=== PATIENT | male | born 1940 | race Caucasian/White ===

== ENCOUNTER 2018-07-22 06:40 | Inpatient (IN) ==
[2018-07-22] MEDS ORDERED: Chlorhexidine Gluconate 2% 1 Pack (2 Cloths) TOPICAL ONE (07:30)
[2018-07-22] MEDS ORDERED: Chlorhexidine 4% Topical 120 APPLIC/120 ML Bottle TOPICAL SCH (07:30)
[2018-07-22] MEDS ORDERED: Metoprolol Tartrate 25 MG Tablet PO ONE (07:30)
[2018-07-22] MEDS ORDERED: Sodium Chlor 0.9% Inj 500 ML IV.CONT ONE (07:30)
[2018-07-22] MEDS ORDERED: Dexamethasone Inj 20 MG/5 ML Vial IV.PUSH SCH (08:00)
[2018-07-22] MEDS ORDERED: ceFAZolin 2 GM Premix Inj 2 GM/50 ML PIGGYBACK IV.SIG SCH (08:00)
[2018-07-22] MEDS ORDERED: Vancomycin Inj 1,000 MG in Sodium Chlor 0.9% Inj 250 ML IV.SIG SCH (08:00)
[2018-07-22] MEDS ORDERED: SODIUM CHLOR 0.9% IV.SIG SCH (08:30)
[2018-07-22] MEDS ORDERED: Sodium Chlor 0.9% Inj 40 ML, Bupivacaine Liposo PF 1.3% Inj 20 ML P-ARTICULR SCH ×2 (08:30)
[2018-07-22] MEDS ORDERED: TRANEXAMIC ACID IV.SIG SCH (08:30)
[2018-07-22] MEDS ORDERED: fentaNYL Citrate Inj 100 MCG/2 ML Ampul ONE (08:55)
[2018-07-22] MEDS ORDERED: fentaNYL Citrate Inj 250 MCG/5 ML Ampul ONE (08:56)
[2018-07-22] MEDS ORDERED: Famotidine PF Inj 20 MG/2 ML Vial ONE (08:56)
[2018-07-22] MEDS ORDERED: TRANEXAMIC ACID IV.SIG ONE (11:42)
[2018-07-22] MEDS ORDERED: Zolpidem Tartrate 5 MG Tablet PO PRN (11:42)
[2018-07-22] MEDS ORDERED: SODIUM CHLOR 0.9% IV.SIG ONE (11:42)
[2018-07-22] MEDS ORDERED: Post-op Orders (for Pharmacy) OTHER STA (11:42)
[2018-07-22] MEDS ORDERED: Morphine Inj 4 MG/ML Vial IV.PUSH PRN (11:42)
[2018-07-22] MEDS ORDERED: Bisacodyl 10 MG Supp RECTAL PRN (11:42)
[2018-07-22] MEDS ORDERED: Aluminum/Magnesium/Simethacone Susp 30 ML UDC PO PRN (11:42)
--- NOTE | 2018-07-22 11:44 | P.OP ---
- Preoperative Diagnosis (1) Osteoarthritis of right hip - Postoperative Diagnosis (1) Osteoarthritis of right hip Date of procedure: 07/22/18 Procedure: Right total hip arthroplasty Anesthesia: GETA Surgeon: Brain Peng MD Waste [employer] Batting Waste Chopper: GUSTAVO De La Torre The surgical procedure was assisted by my Advanced Registered Nurse Practitioner. My REPAIRER AND CHECKER presence was necessary throughout this case for the manipulation and positioning of the surgical extremity. My REPAIRER AND CHECKER was assisting me throughout the duration of this procedure. The skill set of an Advance Registered Nurse Practitioner was medically necessary to complete this procedure. During the surgical case, the surgical assist was working at the back table and the Advance Registered Nurse Practitioner was directly assisting me. Operation and Findings: IMPLANT DESCRIPTION ([facility]): 1. [place] Gription Cup, acetabular size 58. 2. [place] AltrX polyethylene, neutral. 4. Corail femoral stem size 11, no collar, high offset. 5. Femoral head/neck metal, 36, +1.5. ESTIMATED BLOOD LOSS: 150 cc. JUSTIFICATION FOR PROCEDURE: The patient has end-stage osteoarthritis to the hip. There is an attached conservative measures pathway form in the chart that describes the nonoperative measures that were undertaken prior to consideration of surgical management. The patient understood the risks and benefits of surgical management. See my office notes for further details. PROCEDURE: The patient was brought back to the operative theatre. Adequate anesthesia was obtained. The patient received intravenous vancomycin and Ancef. The patient was carefully placed on the operative table. The lower extremity was prepped and draped in the usual sterile fashion. Fluoroscopic images were obtained. We made a standard anterior incision over the hip. We dissected through the TFL fascia, exposing the anterior capsule. Arthrotomy was performed in a T-shaped fashion. The capsule was tagged with a #2 FiberWire. End-stage arthritis was identified. Osteotomy was performed through the femoral neck exposing the acetabulum. Remnants of the labrum were resected and osteophytes were removed. We sequentially reamed the acetabulum. We trialed the hip and placed the final cup into position. This was done under fluoroscopic guidance to obtain the appropriate inclination and anteversion. A manhole cover was placed into the acetabular component. We then placed the final polyethylene into position and confirmed that it was well seated. Capsular attachments on the calcar and the inner aspect of the greater trochanter were resected. On the proximal aspect of the femur we used a rongeur , box osteotome, canal finder, sequential broaches and lateralizing rasp. We calcar planed the proximal femur. Then thoroughly irrigated the wound. We trialed the hip with the appropriate size stem. We placed the final stem in to position and trialed again. The hip was stable while it was externally rotated 70 degrees when the leg was lowered to the floor. The final head was applied, and final fluoroscopic images were obtained. The wound was thoroughly irrigated again. Interarticular injection of liposomal bupivacaine was given. The capsule was closed with #2 FiberWire and #1 Vicryl. The deep fascia was closed with a #2 Stratafix, followed by 2-0 Vicryl in the skin and Dermabond dressing. Postop plan is to weight-bear as tolerated. DVT prophylaxis will be performed with SCDs, ROSEANNA hose, early mobilization, and resumption of Xarelto (10 mg while in the hospital and continuing outpatient dose of 20 after discharge).
[2018-07-22] MEDS: Sod Chloride 0.9% Inj 1,000 ML IV.CONT SCH (12:32)
--- NOTE | 2018-07-22 12:51 | XR ---
EXAM DATE: 07/22/2018 12:45 PM EST AGE/SEX: 78 years / Male INDICATIONS: Post op right hip. CLINICAL DATA: This is the patient's initial encounter. Patient reports that signs and symptoms have been present for 1 day and indicates a pain score of Nonresponsive. MEDICAL/SURGICAL HISTORY: None. . Left hip replacement. COMPARISON: [facility] – [place], HIP LEFT (AP&LAT 2/3VWS) WO AP PELVIS, 03/04/2012. . FINDINGS: Right total hip arthroplasty has been performed. The prosthesis is in good position. No fracture or d islocation is noted. Old left total hip arthroplasty is noted. Degenerative changes are noted involvi ng the lower lumbar spine. CONCLUSION: 1. Post right total hip arthroplasty with prosthesis in good position. 2. No acute fracture or dislocation. 3. Degenerative changes within the lower lumbar spine. Electronically signed by: Abdulaziz Meraz MD Board Certified Radiologist 07/22/2018 12:50 PM EST
--- NOTE | 2018-07-22 14:03 | XR ---
EXAM DATE: 07/22/2018 2:00 PM EST AGE/SEX: 78 years / Male INDICATIONS: Right total hip arthroplasty. CLINICAL DATA: This is the patient's initial encounter. Patient reports that signs and symptoms have been present for 1 day and indicates a pain score of Nonresponsive. MEDICAL/SURGICAL HISTORY: Non-responsive. Non-responsive. COMPARISON: No prior exams available for comparison. FINDINGS: The patient is status post right total hip arthroplasty. The prosthesis is in good position. No fract ure or dislocation is noted. CONCLUSION: Status post right total hip arthroplasty with prosthesis in good position. Electronically signed by: Abdulaziz Meraz MD Board Certified Radiologist 07/22/2018 2:02 PM EST
[2018-07-22] MEDS: ceFAZolin 1 GM Premix Inj 1 GM/50 ML PIGGYBACK IV.SIG SCH ×2 (14:11→21:12)
--- NOTE | 2018-07-22 16:37 | P.DCO ---
- Physical Therapy Physical Therapy: Gait training, Transfer training, bed to chair Hip: Total hip Right Lower Extremity Weight Bearing: Weight bearing as tolerated Right Lower Extremity Range of Motion: Active ROM - Nursing Dressing changes: Do not change dressing Additional instructions: First dressing change in the office - Certification Need for Home Health services: I have seen patient Leobardo Mccauley on 07/22/18. My clinical findings support the need for the requested home health care services because: Need for Home Health Services: Limited ability to care for self, High risk of falls Homebound Certification: I certify that my clinical findings support that this patient is homebound because: Homebound Certification: Post-op weakness, Unsteady gait/balance
[2018-07-22] MEDS ORDERED: Ramipril 5 MG Capsule PO SCH (21:00)
[2018-07-22] MEDS: Multivitamin/Minerals Therapeutic Tablet PO SCH (21:15)
[2018-07-22] MEDS: Senna/Docusate Sodium 8.6/50 MG Tablet PO SCH (21:15)
[2018-07-23] MEDS: Sod Chloride 0.9% Inj 1,000 ML IV.CONT SCH (01:00)
[2018-07-23] MEDS: ceFAZolin 1 GM Premix Inj 1 GM/50 ML PIGGYBACK IV.SIG SCH (02:27)
[2018-07-23 04:21] LABS: Hematocrit 39.2 % (39.0-51.0); Hemoglobin 13.3 gm/dL (13.0-17.0)
--- NOTE | 2018-07-23 07:25 | P.PNOP ---
Subjective Interval history: The patient is resting comfortably in bed in no acute distress. The patient denies any pain to the right hip. The patient does want to go home today with home health. Physical Exam Vital signs: Vital Signs 07/22/18 12:08 07/22/18 12:15 07/22/18 12:30 Temperature 97.9 F Pulse Rate 102 H 110 H 111 H Respiratory Rate 14 14 14 Blood Pressure 137/91 H 120/63 122/71 Pulse Oximetry 96 94 L 94 L 07/22/18 12:45 07/22/18 13:00 07/22/18 13:15 Temperature 97.9 F Pulse Rate 102 H 99 H 94 H Respiratory Rate 14 14 14 Blood Pressure 140/66 131/66 147/65 H Pulse Oximetry 96 93 L 95 07/22/18 13:25 07/22/18 16:00 07/22/18 19:56 Temperature 97.3 F L 97.5 F L Pulse Rate 90 103 H Respiratory Rate 16 18 Blood Pressure 169/77 H 133/85 Pulse Oximetry 95 94 L 97 07/22/18 23:16 07/23/18 02:16 07/23/18 03:55 Temperature 97.4 F L 98.0 F Pulse Rate 73 82 Respiratory Rate 18 17 18 Blood Pressure 118/69 139/90 Pulse Oximetry 95 96 Intake & Output 07/22/18 07/23/18 07/23/18 18:59 06:59 18:59 Intake Total 2058.14 / 2058.14 1460 / 1460 Output Total 250 / 250 1150 / 1150 Balance 1808.14 / 1808.14 310 / 310 Weight 81.4 kg 81.4 kg Intake: IV 458.14 / 458.14 1100 / 1100 NS Inj 1,000 ML @ 80 mls/hr IV. 1000 / 1000 CONT .[id number] KOJO Rx#:[id number] Cyklokapron Inj 814 MG In NS 108.14 / 108.14 Inj 100 ML @ 200 mls/hr IV.SIG GROCERY DELIVERER KOJO Rx#:[id number] Vancomycin Inj 1,000 MG In NS 250 / 250 Inj 250 ML @ 250 mls/hr IV.SIG GROCERY DELIVERER KOJO Rx#:[id number] Ancef 1 GM Premix Inj 1 gm In 50 / 50 100 / 100 50 ml @ 100 mls/hr IV.SIG Q6H KOJO Rx#:[id number] Ancef 2 GM Premix Inj 2 gm In 50 / 50 50 ml @ 100 mls/hr IV.SIG GROCERY DELIVERER KOJO Rx#:[id number] Oral 360 / 360 Anesthesia Amount 1600 / 1600 Output: Urine 1150 / 1150 Estimated Blood Loss 250 / 250 Other: Date of Last Bowel Movement 07/21/18 07/21/18 # Bowel Movements 0 Weight On Admission 81.4 kg Narrative: The patient's dressing is clean, dry, and intact. EHL/TA/G are intact. 2+ pedal pulse. The patient's calf is soft and nontender. Sensation is intact to light touch distally. Results - Labs CBC & Chem 7: 07/23/18 03:46 Laboratory Results - last 24 hr 07/22/18 07/23/18 07:40 03:46 Hgb 13.3 Hct 39.2 Blood Type B Positive Blood Type Recheck Not needed Antibody Screen Negative - Imaging Impressions Hip X-Ray 07/22/18 00:00 CONCLUSION: Status post right total hip arthroplasty with prosthesis in good position. Hip X-Ray 07/22/18 11:42 CONCLUSION: 1. Post right total hip arthroplasty with prosthesis in good position. 2. No acute fracture or dislocation. 3. Degenerative changes within the lower lumbar spine. - Procedures Right total hip arthroplasty Assessment and Plan - Problem List (1) Status post total hip replacement, right Code(s): Z96.641 - Presence of right artificial hip joint Status: Acute (2) Osteoarthritis of right hip Code(s): M16.11 - Unilateral primary osteoarthritis, right hip Status: Acute - Assessment and Plan POD #1: [Right] total hip arthroplasty 1. Weightbearing as tolerated on [right] lower extremity. 2. Xarelto 10 mg tablet by mouth daily while in the hospital and then resume normal dose of Xarelto 20 mg daily when discharged home for DVT prophylaxis. 3. Ice as needed for swelling. 4. Stable per ortho for discharge to home health today. 5. The patient will follow up with Dr. Peng and/or GUSTAVO Hightower as previously scheduled.
[2018-07-23] MEDS ORDERED: Dexamethasone Inj 20 MG/5 ML Vial IV.PUSH ONE (08:00)
[2018-07-23 08:53] VITALS: BP 125/60; PULSE 85; RESP 16; TEMP 97.6; O2SAT 97
[2018-07-23] MEDS ORDERED: dilTIAZem CD 120 MG Capsule PO SCH (09:00)
[2018-07-23] MEDS: Multivitamin/Minerals Therapeutic Tablet PO SCH (09:13)
[2018-07-23] MEDS: Senna/Docusate Sodium 8.6/50 MG Tablet PO SCH (09:13)
[2018-07-23] MEDS ORDERED: Rivaroxaban 10 MG Tablet PO SCH (11:00)
--- NOTE | 2018-07-24 15:13 | P.DS ---
Date of admission: 07/22/18 12:27 Primary care physician: PROVIDER NON STAFF Attending physician on discharge: Brain Peng Anticipated date of discharge: 07/23/18 Brief History from admission: The patient was admitted to the hospital for severe osteoarthritis of the right hip to have a right total hip arthroplasty. DS: Diagnosis - Discharge Diagnosis (1) Status post total hip replacement, right Status: Acute (2) Osteoarthritis of right hip Status: Acute DS: Summary Hospital Course: The patient was admitted to the hospital for severe osteoarthritis of the [right ] hip to have a [right] total hip arthroplasty. The patient's surgery went well with no complication. The patient is on a [regular] diet. The patient's DVT prophylaxis includes use of Xarelto 10 mg daily while in the hospital and then resume his normal dose of Xarelto 20 mg by mouth daily after being discharged home. The patient is weightbearing as tolerated. The patient was discharged [home with home health] and will follow up in the office with Dr. Peng and/or GUSTAVO Hightower as previously scheduled. - Time Spent with Patient Total time spent providing and/or coordinating discharge services: Greater than 30 minutes - Quality: VTE Deep Vein Thrombosis/Pulmonary Embolism Present on Admission: No Exam Vital signs: Intake & Output 07/23/18 07/24/18 07/24/18 18:59 06:59 18:59 Other: Date of Last Bowel Movement 07/21/18 Narrative: The patient's dressing is clean, dry, and intact. EHL/TA/G are intact. 2+ pedal pulse. The patient's calf is soft and nontender. Sensation is intact to light touch distally. Results Procedures completed during hospitalization: Right total hip arthroplasty - Impressions ITS Impressions Hip X-Ray 07/22/18 11:42 CONCLUSION: 1. Post right total hip arthroplasty with prosthesis in good position. 2. No acute fracture or dislocation. 3. Degenerative changes within the lower lumbar spine. Discharge Plan - Discharge Disposition Patient Disposition: W/Home Health Service - Discharge Condition Condition: Stable - Discharge Order Discharge Orders: Discharge Order (Routine); Ordered 07/22/18 Ordered By: Abimael Mendez - Discharge Details Anticipated Discharge Date: 07/23/18 - Physicians Team Primary Care Provider: NON STAFF,PROVIDER Attending Provider: Brain Peng Other Providers: ; [employer] - Rxs /Orders / Referrals /Forms Prescriptions: Continue atorvastatin 40 mg Tablet 40 mg PO HS cetirizine 10 mg Tablet 10 mg PO DAILY PRN (Reason: allergies) cholecalciferol (vitamin D3) [Vitamin D3] 1,000 unit Capsule 1,000 unit PO DAILY diltiazem HCl 120 mg Capsule,Ext.Rel 24h Degradable 120 mg PO DAILY metoprolol succinate 25 mg Tablet Extended Release 24 Hr 25 mg PO BID [id number] acid [Daily Multivitamin with Iron] 18-400 mg-mcg Tablet 1 tab PO DAILY omeprazole 20 mg Capsule,Delayed Release(Dr/Ec) 20 mg PO HS ramipril 5 mg Capsule 5 mg PO HS rivaroxaban [Xarelto] 20 mg Tablet 20 mg PO QPM ropinirole 5 mg Tablet 5 mg PO BID terazosin 2 mg Capsule 2 mg PO HS Discontinued omega 3-vzw-ztj-fish oil [Fish Oil] 1,000 mg (120 mg-180 mg) Capsule 1 cap PO DAILY Ambulatory Orders / Order Sets / DME: Adjustable Commode 3-in-1 (1 each) (Routine) Location: Determined by Patient Ordered By: Abimael Mendez Walker With Front Wheels (1 each) (Routine) Location: Determined by Patient Ordered By: Abimael Mendez Referrals: Brain Peng MD [Physician] - See Instructions (F/U in the office with Dr. Peng or Brandon Mendez APRN as previously scheduled. ) NON STAFF,PROVIDER [Primary Care Provider] - See Instructions - Discharge Instructions Patient Printed Instructions: How to Use an Incentive Spirometer (DC), How to Choose and Use a Walker (GEN), ROSEANNA Hose (DC), Total Hip Replacement (DC) Additional Instructions: Patient has Prescriptions at home from Surgeon office prior to admission Full weight bearing to right total hip Follow up appointment set for 08/06/2018 at 2:[address] Peng at [place] office - Post Discharge Care Plan Care Plan Goals: Your Health Problems: Goals to Promote Your Health: * To prevent worsening of your condition * To maintain your health at the optimal level Directions to Meet Your Goals: * Take your medications as prescribed * Follow your dietary instruction * Follow activity as directed * Keep your appointments as scheduled * Take your immunizations and boosters as scheduled * If your symptoms worsen call your PCP * If no PCP go to Urgent Care or Emergency Room Smoking is dangerous to your health. Avoid second hand smoke. You may reach the 24-hour crisis hotline for domestic abuse at .
== END 2018-07-23 13:26 | disposition home health service (06) | DRG 470 ==
LOC: HSDC 06:40 → EDSTATUS 10:00 → HSDI 12:27 → N06 13:38
PROVIDERS: ADMIT Orthopaedic Surgery; ATTEND Orthopaedic Surgery
CPT/HCPCS: 73502; 76000; 85014; 85018; 86850; 86900; 86901; 94150; 97110; 97116; 97163; 97166; C1776; C9290; J0131; J0690; J1100; J2250; J2270; J3010; J3370; J7030; J7050; J7120